=== PATIENT | female | born 1980 | race Caucasian/White ===

== ENCOUNTER → 2017-01-04 | Outpatient (CLI) | payer OTHER ==
[~2017-01-04] MED LIST: FLONASE 0.05% N16 GM; MIRALAX17 GM PO; PERCOCET 5-3251 EACH PO; PHENERGAN 25 MG25 M1 PO; SUBOXONE 8 MG-1 EACH SL
== END ==
LOC: US 13:00
DX: N93.8 Other specified abnormal uterine and vaginal bleeding (principal); Z88.0 Allergy status to penicillin; Z88.5 Allergy status to narcotic agent; Z88.1 Allergy status to other antibiotic agents
CPT/HCPCS: 76830

== ENCOUNTER → 2020-11-20 | Outpatient (CLI) | payer OTHER ==
[~2020-11-20] MED LIST changes: +DOXYCYCLINE HY100 MG PO; +PREDNISONE 50 M50 MG PO
== END ==
LOC: KOH-I 13:30
DX: R31.9 Hematuria, unspecified (principal); R10.13 Epigastric pain; R10.12 Left upper quadrant pain; N20.0 Calculus of kidney; K43.9 Ventral hernia without obstruction or gangrene; N83.202 Unspecified ovarian cyst, left side
CPT/HCPCS: 74176

== ENCOUNTER 2022-03-08 21:10 | Emergency (ER) | payer OTHER ==
[2022-03-08 22:12] LABS: HEMOGLOBIN 14.8 gm/dl (12.3-15.3); RED BLOOD COUNT 4.54 M/UL (4.00-5.10); WHITE BLOOD COUNT 7.5 K/UL (4.5-11.0)
[2022-03-08 22:35] LABS: BUN/CREATININE RATIO 12 (0-10)
[2022-03-09] MEDS ORDERED: PHENERGAN 25 MG25 M1 PO (00:24)
== END 2022-03-09 00:20 | disposition home or self-care (01) ==
LOC: ER1 21:10
PROVIDERS: Family Medicine
DX: K43.9 Ventral hernia without obstruction or gangrene (principal)
CPT/HCPCS: 80053; 81001; 83690; 85025; 96374; 99284; J2405; J2550; Q9967

== ENCOUNTER 2022-06-24 00:56 | Emergency (ER) | payer OTHER ==
[2022-06-24] MEDS ORDERED: NAPROXEN500 MG PO (02:22)
== END 2022-06-24 02:50 | disposition home or self-care (01) ==
LOC: ER1 00:56
DX: S90.32XA Contusion of left foot, initial encounter (principal); W01.10XA Fall on same level from slipping, tripping and stumbling with subsequent striking against unspecified object, initial encounter; Y92.512 Supermarket, store or market as the place of occurrence of the external cause
CPT/HCPCS: 73630; 99283